=== PATIENT | female | born 1995 | race Two or more races ===

== ENCOUNTER 2025-11-05 01:25 | Observation (INO) | payer MEDICAID ==
[~2025-11-05] VITALS: Ht 160 cm; Wt 68.9 kg
[2025-11-05 02:08] VITALS: TEMP 99.7
[2025-11-05] MEDS: LACTATED RINGER'S 1,000 ML IV ONE (02:08)
[2025-11-05] MEDS: ACETAMINOPHEN 500 MG TAB or CAP PO ONE (02:08)
[2025-11-05] MEDS ORDERED: PREN-96 OR (02:32)
--- NOTE | 2025-11-05 10:15 | DVHDS2 ---
Physician Discharge Progress N Final Diagnosis: IUP at 27w 0d GDMA1 Reactive NST Operations or Procedures: Operations or Procedures TRIAGE S: 29yo G3,2002 with EDC of 02/04/2026, DARRYL 27w 0d brought [facility] Place by ambulance with report of feeling contraction, one in every 20minutes and Head ache. Also fever and decreased movement. She reports one of her children has flu. She reports no VB, no leakage of fluids, no vision changes or epigastric pain. No urinary symptoms. IV line patent (placed by paramedics) Receiving care with [facility] (Dr Damon) Has GDMA1 Has h/o x2, Syphilis (last ATB inj for this was in Sep 2025) She reports no toxic habit or IPV. Lives with partner and their son. ROS: Neurological: Unremarkable except as noted in Presenting problem/ CC above Respiratory: reports no respiratory symptom, no SOB Cardiovascular: no palpitation, chest pain or easy fatigue : No vaginal or urinary symptom O: PE: A&O x3, NAD, well groomed. pleasant. Appropriate and normal mood and affect Afebrile, VSS Respiration unlabored Heart and lungs sounds: normal Abdomen: Gravid, non-tender to palpation. Fundal Ht 38cm. Cephalic presentation Extremities: No edema IV line patent (placed by paramedics) UA: Neg except for 4+ glucosuria POC Blood glucose 194mg/dL EFM: occasional contractions FHR baseline 150bpm with min - moderate variability and accelerations, no deceleration Tocometer: A: IUP at 27w 0d Decreased FM P: IV hydration with LR Acetaminophen 1g by oral route Re-Assessment Contraction and OLSEN resolved per patient "I feel much better" A: IUP at 27w 0d Fever & OLSEN Resolved Category I FHR tracing P: Discharge home Keep appointment with OB provider as scheduled on 11/06/25 Educated on the need for adequate hydration - advised to increased water intake FMC, 3rd trimester emergency S&S, labor & pre-eclampsia precautions reviewed with pt; advised to seek health care if any Commentary: Commentary OLSEN and cramping Resolved Condition on Discharge: Stable Disposition: Home Discharge Instructions: Diet: See Comment Diet comment: JOSEPH NEWELL Activity: No Restrictions, As Tolerated Follow Up/Referral: Keep appointment with Dr Damon on Thursday11/06/25; seek care soone if needed Medications: None Follow Up Care: Discharge Statement: > Keep appointment with OB provider as scheduled on 11/06/25 > Educated on the need for adequate hydration - advised to increased water intake > FMC, 3rd trimester emergency S&S, labor & pre-eclampsia precautions reviewed with pt; advised to seek health care if any "Patient was advised to return to the ER or call 911 if any headaches, dizziness, shortness of breath, chest pain, abdominal pain, bleeding, fevers, or worsening of medical condition. Patient was counseled about treatment plan, medications, possible side effects, patientverbalized understanding. All questions were answered to the best of my ability. This discharge took greater then 30 minutes in planning, reviewing documentation, counseling the patient, and discussing with other team members." Visit Coding OBGYN Date of Service: Nov 05, 2025 Billing Provider: GRACIA SCHWARTZ CNM HOME CARE RN Common Visit Codes: 00143-IDC/OBS SAME DATE (HIGH) HOME CARE RN Procedure Codes: 18381-81- NON-STRESS TEST GRACIA SCHWARTZ CNM Nov 05, 2025 10:15
== END 2025-11-05 03:17 | disposition home or self-care (01) ==
LOC: LDRP 01:25
PROVIDERS: ADMIT Obstetrics & Gynecology; ATTEND Obstetrics & Gynecology
DX: O24.419 Gestational diabetes mellitus in pregnancy, unspecified control (principal); O36.8120 Decreased fetal movements, second trimester, not applicable or unspecified; Z3A.27 27 weeks gestation of pregnancy; Z98.890 Other specified postprocedural states
CPT/HCPCS: 81002; 82948; 82962; 94760; 96360; A4649; G0378